=== PATIENT | female | born 1975 | race African-American/Black ===

== ENCOUNTER 2017-01-01 10:34 | Inpatient (IN) | payer OTHER ==
[2017-01-01] VITALS (18 sets, daily range): BP systolic 114–136; BP diastolic 66–99
[~2017-01-01] VITALS: Ht 162.6 cm; Wt 61.0 kg
[~2017-01-01 10:34] MED LIST: FERR-89 PO; GABA-531 PO; LACT30L PO; MAGN400T25 PO; MULT-1238 PO; OMEP20 PO; VITAD1000 PO
[2017-01-01] MEDS ORDERED: CLAR500T PO (11:01)
[2017-01-01] MEDS ORDERED: DOXY100C40 PO (11:01)
[2017-01-01] MEDS ORDERED: METR500 PO (11:01)
[2017-01-01] MEDS ORDERED: SPIR50 PO (11:01)
[2017-01-01] MEDS ORDERED: AMOX500C2 PO (11:01)
[2017-01-01 12:39] LABS: ANION GAP 13 mmol/L (8-16); CALCIUM, TOTAL 7.8 mg/dL (8.8-10.5); CARBON DIOXIDE 20 mmol/L (22-29); CHLORIDE 107 mmol/L (98-107); CREATININE 0.78 mg/dL (0.60-1.30); GLOMERULAR FILTR. RATE CALC > 60 mL/min (>60); POTASSIUM 4.2 mmol/L (3.5-5.1); SODIUM SERUM 140 mmol/L (136-145); UREA NITROGEN, BLOOD 7 mg/dL (7-18)
[2017-01-01 12:44] LABS: ALANINE AMINOTRANSFERASE 19 U/L (12-78); ALBUMIN 1.2 g/dL (3.4-5.0); AMYLASE 50 U/L (25-115); ASPARTATE AMINOTRANSFERASE 65 U/L (15-37); BILIRUBIN,TOTAL 2.9 mg/dL (0.1-1.0); TOTAL PROTEIN, SERUM 8.5 g/dL (6.4-8.2)
[2017-01-01 12:48] LABS: PROTHROMBIN TIME 21.3 SEC (9.4-11.6)
[2017-01-01 13:01] LABS: BASOPHILS # (AUTO) 0.01 K/uL (0.00-0.20); BASOPHILS % (AUTO) 0.4 % (0.0-2.0); EOSINOPHILS # (AUTO) 0.03 K/uL (0.00-0.70); EOSINOPHILS % (AUTO) 1.15 % (1.0-6.0); LYMPHOCYTES # (AUTO) 0.7 K/uL (1.0-4.8); LYMPHOCYTES % (AUTO) 30.2 % (22.0-44.0); MEAN CORPUSCULAR HGB CONC 33.2 G/dL (31.0-37.0); MEAN CORPUSCULAR VOLUME 115 fL (80-100); MONOCYTES # (AUTO) 0.4 K/uL (0.1-1.0); NEUTROPHILS # (AUTO) 1.1 K/uL (1.8-7.7); NEUTROPHILS % (AUTO) 49.3 % (40.0-70.0); RED BLOOD CELL COUNT(AUTO) 1.77 MIL/uL (4.00-5.20); RED CELL DISTRIBUTION WIDTH 19.6 % (11.5-14.5); WHITE BLOOD COUNT (AUTO) 2.2 K/uL (4.5-11.0)
[2017-01-01 13:05] LABS: HEMOGLOBIN 6.7 g/dL (12.0-16.0)
[2017-01-01 13:06] LABS: HEMATOCRIT 20.3 % (36-46)
[2017-01-01 13:42] LABS: PLATELET COUNT (AUTO) 73 K/uL (150-450); RBC MORPHOLOGY COMMENT ABNORMAL RBC MORPH
[2017-01-01] MEDS ORDERED: HYDROmorphone 2 MG/ML SYRINGE IVP ONE (13:45)
[2017-01-01] MEDS ORDERED: ONDANSETRON HCL 4 MG/2 ML VIAL IVP ONE (13:45)
[2017-01-01] MEDS ORDERED: DiphenhydrAMINE HCL 25 MG CAPSULE PO ONE (14:00)
[2017-01-01] MEDS ORDERED: ALBUTEROL SULFATE 2.5 MG/0.5 ML NEB SOLUTION NEB PRN (14:45)
[2017-01-01] MEDS ORDERED: MAGNESIUM HYDROXIDE SUSPENSION 30 ML UDCUP PO PRN (14:45)
[2017-01-01] MEDS ORDERED: PHYTONADIONE 10 MG/1 ML AMP SQ ONE (14:45)
[2017-01-01] MEDS ORDERED: ONDANSETRON HCL 4 MG/2 ML VIAL IVP PRN (14:45)
[2017-01-01] MEDS ORDERED: SODIUM CHLORIDE 0.9% 250 ML IV ONE (14:59)
[2017-01-01] MEDS: FUROSEMIDE 20 MG/2 ML VIAL IVP SCH (15:04)
[2017-01-01] MEDS: SPIRONOLACTONE 50 MG TABLET PO SCH (15:21)
[2017-01-01] MEDS: PANTOPRAZOLE SODIUM 40 MG DR TABLET PO SCH ×2 (15:21→20:08)
[2017-01-01] MEDS ORDERED: SODIUM CHLORIDE 0.9% 500 ML IV ONE (15:58)
[2017-01-01 17:03] LABS: APPEARANCE,URINE TURBID (CLEAR); GLUCOSE, URINE (UA) NEGATIVE (NEGATIVE); KETONES,URINE NEGATIVE (NEGATIVE); LEUKOCYTE ESTERASE ,URINE TRACE (NEGATIVE); OCCULT BLOOD,URINE LARGE (NEGATIVE); PH,URINE 6.5 (5.0-8.0); PROTEIN,URINE NEGATIVE (NEGATIVE)
[2017-01-01 17:05] LABS: ADD UA MICROSCOPIC YES
[2017-01-01 17:09] LABS: RBC,URINE 26-50 /HPF (0-2); SQUAMOUS EPITHELIAL CELL,UR Many /LPF (None Seen)
[2017-01-01] MEDS: LACTULOSE 20 GM/30 ML SOLUTION UDCUP PO SCH ×2 (18:20→23:49)
[2017-01-01] MEDS: DOCUSATE SODIUM 100 MG CAPSULE PO SCH (20:08)
[2017-01-01] MEDS: ACETAMINOPHEN 325 MG TABLET PO PRN (20:09)
[2017-01-02 04:00] VITALS: BP 114/69
[2017-01-02 06:58] LABS: HEMATOCRIT 21.3 % (36-46); HEMOGLOBIN 7.4 g/dL (12.0-16.0); MEAN CORPUSCULAR HGB CONC 34.7 G/dL (31.0-37.0); MEAN CORPUSCULAR VOLUME 101 fL (80-100); RED BLOOD CELL COUNT(AUTO) 2.12 MIL/uL (4.00-5.20); RED CELL DISTRIBUTION WIDTH 27.5 % (11.5-14.5); WHITE BLOOD COUNT (AUTO) 2.9 K/uL (4.5-11.0)
[2017-01-02 07:03] VITALS: BP 105/54
[2017-01-02 07:17] LABS: ALANINE AMINOTRANSFERASE 15 U/L (12-78); ANION GAP 7 mmol/L (8-16); ASPARTATE AMINOTRANSFERASE 58 U/L (15-37); BILIRUBIN,TOTAL 4.7 mg/dL (0.1-1.0); CALCIUM, TOTAL 7.2 mg/dL (8.8-10.5); CARBON DIOXIDE 20 mmol/L (22-29); CHLORIDE 107 mmol/L (98-107); GLOMERULAR FILTR. RATE CALC > 60 mL/min (>60); SODIUM SERUM 134 mmol/L (136-145); UREA NITROGEN, BLOOD 10 mg/dL (7-18)
[2017-01-02] MEDS ORDERED: MAGNESIUM SULFATE 2 GM in DEXTROSE 5%-WATER 50 ML IV PRN ×2 (07:45→08:00)
[2017-01-02] MEDS ORDERED: MAGNESIUM OXIDE 400 MG TABLET PO PRN ×2 (07:45→08:00)
[2017-01-02] MEDS ORDERED: MAGNESIUM SULFATE 4 GM/WATER 100 ML IV PRN ×2 (07:45→08:00)
[2017-01-02] MEDS: SPIRONOLACTONE 50 MG TABLET PO SCH (08:02)
[2017-01-02] MEDS: LACTULOSE 20 GM/30 ML SOLUTION UDCUP PO SCH ×3 (08:02→23:37)
[2017-01-02] MEDS: DOCUSATE SODIUM 100 MG CAPSULE PO SCH ×2 (08:02→21:00)
[2017-01-02] MEDS: FUROSEMIDE 20 MG/2 ML VIAL IVP SCH (08:02)
[2017-01-02] MEDS: PANTOPRAZOLE SODIUM 40 MG DR TABLET PO SCH ×2 (08:03→20:38)
[2017-01-02 08:15] LABS: PLATELET COUNT (AUTO) 52 K/uL (150-450)
[2017-01-02] MEDS ORDERED: MAGNESIUM SULFATE 4 GM/WATER 100 ML IV ONE (08:15)
[2017-01-02] MEDS ORDERED: SODIUM CHLORIDE 0.9% 500 ML IV ONE (08:41)
[2017-01-02 08:59] LABS: BAND NEUTROPHILS % (MANUAL) 2 % (1-5); LYMPHOCYTES % (MANUAL) 37 % (22-44); TOTAL CELLS COUNTED 100
[2017-01-02 09:01] LABS: RBC MORPHOLOGY COMMENT DIMORPHIC
[2017-01-02 11:12] VITALS: BP 118/70
[2017-01-02 16:16] VITALS: BP 107/69
[2017-01-02 19:49] VITALS: BP 115/68
[2017-01-02] MEDS: ACETAMINOPHEN 325 MG TABLET PO PRN (20:39)
[2017-01-02 23:31] VITALS: BP 101/57
[2017-01-03 04:00] VITALS: BP 103/60
[2017-01-03 06:43] LABS: HEMATOCRIT 22.7 % (36-46); MEAN CORPUSCULAR HEMOGLOBIN 35.7 pg (26.0-34.0); MEAN CORPUSCULAR VOLUME 102 fL (80-100); PLATELET COUNT (AUTO) 42 K/uL (150-450); RED BLOOD CELL COUNT(AUTO) 2.23 MIL/uL (4.00-5.20); RED CELL DISTRIBUTION WIDTH 27.4 % (11.5-14.5); WHITE BLOOD COUNT (AUTO) 2.8 K/uL (4.5-11.0)
[2017-01-03 07:39] VITALS: BP 103/67
[2017-01-03 07:39] LABS: INR 2.1 (0.9-1.1); PROTHROMBIN TIME 22.3 SEC (9.4-11.6)
[2017-01-03] MEDS: LACTULOSE 20 GM/30 ML SOLUTION UDCUP PO SCH ×2 (07:55→16:46)
[2017-01-03] MEDS: SPIRONOLACTONE 50 MG TABLET PO SCH (07:56)
[2017-01-03] MEDS: DOCUSATE SODIUM 100 MG CAPSULE PO SCH (07:56)
[2017-01-03] MEDS: PANTOPRAZOLE SODIUM 40 MG DR TABLET PO SCH (07:56)
[2017-01-03] MEDS: FUROSEMIDE 20 MG/2 ML VIAL IVP SCH (07:56)
[2017-01-03 08:44] LABS: BAND NEUTROPHILS % (MANUAL) 3 % (1-5); LYMPHOCYTES % (MANUAL) 33 % (22-44); TOTAL CELLS COUNTED 100
[2017-01-03 08:47] LABS: RBC MORPHOLOGY COMMENT ABNORMAL R
[2017-01-03 11:08] VITALS: BP 98/54
[2017-01-03 13:37] LABS: APPEARANCE,UNSPUN,BODY FLUID HAZY (CLEAR)
[2017-01-03 13:38] LABS: COLOR,BODY FLUID YELLOW (LT YELLOW)
[2017-01-03 15:38] VITALS: BP 107/67
[2017-01-04 13:25] LABS: TOTAL PROTEIN,BODY FLUID,REF 1.6 g/dL
== END 2017-01-03 17:10 | disposition home or self-care (01) | DRG 280 ==
LOC: EMS 10:37 → 6N 14:42 → 5N 14:42
PROVIDERS: ADMIT Internal Medicine; ATTEND Internal Medicine
PROC: 30233N1 Transfusion of Nonautologous Red Blood Cells into Peripheral Vein, Percutaneous Approach (ICD-10-PCS; 2017-01-01)
PROC: 0W9G3ZZ Drainage of Peritoneal Cavity, Percutaneous Approach (ICD-10-PCS; principal; 2017-01-03)
DX: K70.31 Alcoholic cirrhosis of liver with ascites (principal); E43 Unspecified severe protein-calorie malnutrition; D61.818 Other pancytopenia; D68.9 Coagulation defect, unspecified; I11.0 Hypertensive heart disease with heart failure; I50.9 Heart failure, unspecified; E83.42 Hypomagnesemia; G62.9 Polyneuropathy, unspecified; D64.9 Anemia, unspecified; B96.20 Unspecified Escherichia coli [E. coli] as the cause of diseases classified elsewhere; Z53.29 Procedure and treatment not carried out because of patient's decision for other reasons; Z68.23 Body mass index [BMI] 23.0-23.9, adult
CPT/HCPCS: 36430; 49083; 76705; 76942; 82042; 82150; 82945; 83615; 83735; 84157; 86850; 86900; 86901; 86920; 87070; 87086; 87205; 89051; 93005; 96361; 96374; 96375; 99285; J1170; J1940; J2405; J3430; J3475; J7040; J7050; J7060; P9016